=== PATIENT | male | born 1975 | race Two or more races ===

== ENCOUNTER 2021-03-24 22:30 | Emergency (ER) | payer SELFPAY ==
[2021-03-24] MEDS ORDERED: METOPROLOL TARTRATE 1MG/1ML-5ML VIAL IV SCH (22:45)
== END 2021-03-24 22:58 | disposition left against medical advice (07) ==
LOC: ER 22:33
DX: R00.2 Palpitations (principal); Z53.29 Procedure and treatment not carried out because of patient's decision for other reasons